=== PATIENT | female | born 1990 | race African-American/Black ===

== ENCOUNTER 2019-03-30 08:05 | Outpatient (CLI) | payer OTHER ==
--- NOTE | 2019-03-30 09:09 | ULT ---
EXAM: OB ultrasound COMPARISON: None HISTORY: female. Evaluate size, dates, and anatomy. TECHNIQUE: Multiplanar grayscale and color Doppler images were obtained in a transabdominal ult rasound. FINDINGS: There is a single live intrauterine with heart rate of 153 bpm. A survey wa s performed which is unremarkable. The head, intracranial structures, heart, stomach, kidneys, umbilical cord, umbilical cord insertion, spine, face, and extremities were evaluated and were unrema rkable. Estimated weight is 706 g. Average age of the fetus based off today's examination is 24 weeks 5 days. BPD 5.90 cm -- 24 weeks 1 day HC 23.20 cm -- 25 weeks 2 days AC 18.91 cm -- 23 weeks 5 days FL 4.66 cm -- 25 weeks 4 days The placenta is posterior/fundal in location without focal abnormality. JORGE LUIS is 13.91 cm which is norm al. There is no evidence of placenta previa. IMPRESSION: Single live intrauterine with estimated age of 24 weeks 5 days.
== END 2019-03-30 08:06 | disposition home or self-care (01) ==
LOC: BICULT 08:05
PROVIDERS: ATTEND Family Medicine
DX: Z34.92 Encounter for supervision of normal pregnancy, unspecified, second trimester (principal); Z3A.24 24 weeks gestation of pregnancy
CPT/HCPCS: 76805

== ENCOUNTER 2019-07-24 09:13 | Day surgery (SDC) | payer OTHER ==
[2019-07-24 09:39] VITALS: BMI 30.2
[2019-07-24] MEDS ORDERED: hydrALAZINE 20 MG/ML VIAL SLOW IVP PRN (09:55)
--- NOTE | 2019-07-24 21:02 | SS ---
DATE OF ADMISSION: 07/24/2019 DATE OF DISCHARGE: 07/24/2019 REGULAR PHYSICIAN: Ralph Armstrong MD. EVALUATING PHYSICIAN: Jose Bowden MD CHIEF COMPLAINT: Spotting at home. HISTORY OF PRESENT ILLNESS: Ms. Raygoza is a 28-year-old black G1, P0 with an estimated date of confinement of 07/22/2019, who presents complaining of spotting at home with irregular contractions. She denies heavy vaginal bleeding or ruptured membranes. She reports active movement. Her care has been with Dr. Ralph Armstrong. PAST MEDICAL HISTORY: None. PAST SURGICAL HISTORY: None. CURRENT MEDICATIONS: vitamins. ALLERGIES: NO KNOWN ALLERGIES. SOCIAL HISTORY: Denies tobacco, alcohol, or drug use. FAMILY HISTORY: Unremarkable. REVIEW OF SYSTEMS: Denies nausea, vomiting, fever, chills, or ruptured membranes. PHYSICAL EXAMINATION: VITAL SIGNS: In triage, her vital signs are stable and she is afebrile. GENERAL: She is pleasant and in no acute distress. ABDOMEN: Soft, nontender, and gravid. PELVIC: Exam by labor nurse, the cervix is 1 cm thick with a vertex -2. Only a small amount of bloody show was seen. heart rate tracing is reassuring over 20-30 minutes of evaluation. Irregular contractions are seen. ASSESSMENT: 1. A 40-week intrauterine . 2. Bloody show, no evidence of active labor at this time. PLAN: The patient will be dismissed to home. She was given complete labor precautions and states that she has an appointment with Dr. Ralph Armstrong on Wednesday. Job ID: [id number]
== END 2019-07-24 10:30 | disposition home or self-care (01) ==
LOC: L&D/OP 09:13
PROVIDERS: ATTEND Family Medicine
DX: O26.853 Spotting complicating pregnancy, third trimester (principal); O48.0 Post-term pregnancy; Z3A.40 40 weeks gestation of pregnancy

== ENCOUNTER 2019-07-25 22:38 | Day surgery (SDC) | payer OTHER ==
[2019-07-25 23:22] VITALS: BMI 30.2
[2019-07-25] MEDS ORDERED: hydrALAZINE 20 MG/ML VIAL SLOW IVP PRN (23:26)
--- NOTE | 2019-07-25 23:29 | PDOC.LDHP ---
Labor and Delivery H&P Chief complaint: contractions HPI: 28 y/o G1 at 39w3d, patient of Dr. Ralph Armstrong, presents with ctx since 8pm. Was seen yesterday and 1cm dilated. Denies VB, LOF, or decreased FM. ROS neg for HEENT, cv, pulm, gi, gu, neuro, psych, skin, musculoskeletal or constitutional symptoms other than mentioned above. OB History Details: First baby Current complications: none Past Medical History: None Current medications: pre-felipe vitamins Previous surgical history: none Allergies/Adverse Reactions: Allergies Allergy/AdvReac Type Severity Reaction Status Date / Time No Known Allergies Allergy Verified 07/25/19 23:18 Social history: none - Physical Exam Vital signs reviewed and normal: yes General: NAD, resting Lungs: nonlabored breathing Abdomen: gravid Extremeties: no edema FHT: category 1 (130s, mod variabiltiy, + accels, early decel) [place] contractions every: 5 mins - Vaginal Exam cm dilated: 1 (unchanged after 2 hours) Effacement: 90% Station: -2 - Assessment 28 y/o g1 at 39w3d with no e/o active labor. status reassuring with reactive NST. - Plan -: D/c home with precautions. Advised to keep all appointments.
== END 2019-07-26 02:00 | disposition home or self-care (01) ==
LOC: L&D/OP 22:38
PROVIDERS: ATTEND Family Medicine
DX: O47.1 False labor at or after 37 completed weeks of gestation (principal); Z3A.39 39 weeks gestation of pregnancy

== ENCOUNTER 2019-07-27 05:15 | Inpatient (IN) | payer OTHER, SELFPAY ==
[2019-07-27 05:48] VITALS: BMI 30.2
[2019-07-27] MEDS ORDERED: hydrALAZINE 20 MG/ML VIAL SLOW IVP PRN ×3 (06:38→23:58)
[2019-07-27] MEDS ORDERED: Promethazine HCl 25 MG/ML VIAL IM SCH (06:45)
[2019-07-27] MEDS ORDERED: Lactated Ringer's 1,000 ML IV SCH (06:45)
[2019-07-27] MEDS ORDERED: Butorphanol Tartrate 1 MG/ML VIAL SLOW IVP SCH (06:45)
[2019-07-27] MEDS ORDERED: Diphenoxylate HCl/Atropine Tablet PO PRN ×2 (08:26)
[2019-07-27] MEDS ORDERED: Ibuprofen 800 MG TAB PO PRN (08:26)
[2019-07-27] MEDS ORDERED: Carboprost 250 MCG/ML AMP IM PRN (08:26)
[2019-07-27] MEDS ORDERED: Misoprostol 200 MCG TAB PR PRN (08:26)
[2019-07-27] MEDS ORDERED: NS / Oxytocin 40 units/1000ml 1,000 ML IV PRN (08:26)
[2019-07-27] MEDS ORDERED: Acetaminophen 500 MG TAB PO PRN (08:26)
[2019-07-27] MEDS ORDERED: Methylergonovine 0.2 MG/ML VIAL IM PRN (08:26)
[2019-07-27] MEDS ORDERED: Ondansetron PF 4 MG/2 ML Vial IVP PRN ×3 (08:26→23:58)
[2019-07-27] MEDS ORDERED: HYDROcodone/Acetaminophen 5/325 mg Tablet PO PRN ×3 (08:26→23:58)
[2019-07-27] MEDS ORDERED: Promethazine HCl 25 MG/ML VIAL IM PRN ×2 (08:26→14:18)
[2019-07-27] MEDS ORDERED: Lidocaine 1% (PF) 30 ML VIAL SC PRN (08:26)
[2019-07-27] MEDS ORDERED: Penicillin G Potassium 5 MILL.UNITS in Sodium Chloride 0.9% 100 ML IVPB SCH (08:30)
[2019-07-27] MEDS ORDERED: NS w/ Oxytocin 10 units 500 ML IV SCH (08:30)
[2019-07-27] MEDS: Lactated Ringer's 1,000 ML IV SCH ×2 (09:44→22:22)
[2019-07-27 10:03] LABS: Hemoglobin 12.4 g/dL (12.0-16.0); Mean Corpuscular HGB CONC 33.5 g/dL (32.0-36.0); Mean Corpuscular Hemoglobin 29.8 pg (27.0-31.0); Mean Corpuscular Volume 89.1 fL (78.0-98.0); Mean Platelet Volume 8.1 fL (7.4-10.4); Platelet Count 201 thou/uL (130-400); RBC Distribution Width 13.5 % (11.5-14.5); Red Blood Cell (RBC) Count 4.16 mill/uL (4.20-5.40); White Blood Cell (WBC) Count 9.4 thou/uL (4.8-10.8)
[2019-07-27 10:41] LABS: HBSAg Index 0.21 S/CO (0-0.99); Hep B Surf Ag Non-Reactive S/CO (NonReactive); Syphilis Antibody Nonreactive (Nonreactive); Syphilis Antibody Index 0.04 S/CO (<1.00 Non-Reactive)
--- NOTE | 2019-07-27 11:17 | PDOC.LDPN ---
Labor & Delivery Progress Note - Subjective Subjective: painful contractions - Objective Vital signs reviewed and normal: yes General: NAD, resting Uterine fundus: palpable contractions Dilation: 3.5 Effacement: 90% Station: -2 FHT: category 1 [place] contractions every: 2-3 AROM: meconium stained fluid - Assessment (1) Active labor at term Code(s): [id number] - Current Visit: Yes Status: Acute Plan: continue plan of care
[2019-07-27] MEDS ORDERED: Butorphanol Tartrate 1 MG/ML VIAL SLOW IVP PRN (11:27)
[2019-07-27] MEDS ORDERED: Butorphanol Tartrate 1 MG/ML VIAL ONE (11:28)
[2019-07-27] MEDS: Penicillin G 2.5 MILL.units 2.5 MILL.UNITS in Premix Bag 1 BAG IVPB SCH ×3 (13:23→22:23)
[2019-07-27] MEDS ORDERED: Fentanyl 4 mcg/Bup 0.1% Cadd 100 ML ONE (13:27)
[2019-07-27] MEDS ORDERED: Naloxone HCl 0.4 mg/ml Vial IVP PRN ×2 (14:18)
[2019-07-27] MEDS ORDERED: Acetaminophen 325 MG TAB PO PRN (14:18)
[2019-07-27] MEDS ORDERED: Lactated Ringer's 500 ML IV PRN (14:18)
[2019-07-27] MEDS ORDERED: diphenhydrAMINE 50 MG/ML VIAL IVP PRN (14:18)
[2019-07-27] MEDS ORDERED: ePHEDrine/0.9% NaCl/PF SYRINGE 50 mg/10 ml SLOW IVP PRN (14:18)
[2019-07-27] MEDS ORDERED: Communication Order-Pharmacy FS SCH (14:30)
[2019-07-27] MEDS ORDERED: Fentanyl 4 mcg/Bupivacaine 0.1% Cassette 100 ML EPIDURAL SCH (14:30)
[2019-07-27] MEDS ORDERED: Misoprostol 200 MCG TAB ONE (21:01)
[2019-07-27] MEDS ORDERED: Acetaminophen/Codeine 30-300mg Tablet PO PRN (23:58)
[2019-07-27] MEDS ORDERED: Lanolin Ointment 7 GM TUBE TOP PRN (23:58)
[2019-07-27] MEDS ORDERED: Milk Of Magnesia 30 ML UDCUP PO PRN (23:58)
[2019-07-27] MEDS ORDERED: diphenhydrAMINE 25 MG CAP PO PRN (23:58)
[2019-07-27] MEDS ORDERED: Bisacodyl 10 MG SUPP PR PRN (23:58)
[2019-07-27] MEDS ORDERED: traMADol HCl 50 MG TAB PO PRN (23:58)
[2019-07-27] MEDS ORDERED: NS / Oxytocin 40 units/1000ml 1,000 ML IV SCH (23:58)
[2019-07-27] MEDS ORDERED: Benzocaine-Menthol 82.5 ML CAN TOP PRN (23:58)
[2019-07-27] MEDS ORDERED: Preparation H Ointment 28 GM TUBE PR PRN (23:58)
[2019-07-28] MEDS: Lactated Ringer's 1,000 ML IV SCH ×2 (00:01→00:51)
[2019-07-28] MEDS ORDERED: Ibuprofen 800 MG TAB PO SCH (00:30)
--- NOTE | 2019-07-28 02:50 | OP ---
DATE OF PROCEDURE: 07/27/2019 DELIVERING PHYSICIAN: Dr. Cherelle Meneses. ATTENDING PHYSICIAN: Dr. [place] Armstrong PROCEDURE PERFORMED: Spontaneous vaginal delivery. ANESTHESIA: Epidural. ESTIMATED BLOOD LOSS: 350 mL. PREOPERATIVE DIAGNOSES: 1. Term intrauterine . 2. Onset of labor POSTOPERATIVE DIAGNOSES: 1. Term intrauterine , delivered. INDICATIONS: This is a 28-year-old, G1, P0, who presented for induction of labor. DELIVERY NOTE: This is a 28-year-old, G1, P0, at 40 weeks, who delivered a term average for gestational age viable female at 2054 hours on 07/27/2019 via spontaneous vaginal delivery by Dr. Cherelle Meneses with Dr. [place] Armstrong as attending. Following uneventful antepartum course, a vigorous female was delivered over an intact perineum in occipitoanterior position. Anterior shoulder and the remainder of body delivered. No nuchal cord. Head was held down. Mouth and nares were bulb suctioned. Cord was clamped and cut after delayed cord clamping. Cord blood was collected. Placenta was delivered intact with a 3-vessel cord noted. Fundal massage was performed and the fundus was initially noted to be boggy. The patient was given a 1000 mcg of Cytotec and the bleeding resolved. Cervix and vagina were inspected and a second-degree perineal laceration was noted and repaired in the usual sterile fashion using 3-[address] The infant went to nursery in good condition for routine care. Apgars were 7 and 8 at 1 and 5 minutes respectively. The patient tolerated delivery well, went to after routine recovery/ care. Job ID: [id number] [facility]
[2019-07-28] MEDS ORDERED: Lactated Ringer's 500 ML IV SCH (03:45)
[2019-07-28] MEDS: Ibuprofen 800 MG TAB PO SCH ×3 (05:33→21:22)
[2019-07-28 05:56] LABS: Hemoglobin 11.5 g/dL (12.0-16.0); Mean Corpuscular HGB CONC 34.1 g/dL (32.0-36.0); Mean Corpuscular Hemoglobin 30.6 pg (27.0-31.0); Mean Corpuscular Volume 89.8 fL (78.0-98.0); Mean Platelet Volume 7.6 fL (7.4-10.4); Platelet Count 250 thou/uL (130-400); RBC Distribution Width 13.5 % (11.5-14.5); Red Blood Cell (RBC) Count 3.75 mill/uL (4.20-5.40); White Blood Cell (WBC) Count 16.1 thou/uL (4.8-10.8)
[2019-07-28] MEDS: Ferrous Sulfate 325 MG TAB PO SCH (07:35)
[2019-07-28] MEDS: Prenatal Vitamin 1 TAB PO SCH (08:27)
[2019-07-28] MEDS: Docusate Calcium (SURFAK) 240 MG CAP PO SCH ×2 (08:27→21:22)
--- NOTE | 2019-07-28 08:54 | HP ---
HISTORY OF PRESENT ILLNESS: This is a 28-year-old black female, G1, P0, at 40 weeks gestation with EDC of 07/27/2019, who presents with regular contractions. The patient's course is uncomplicated. She is positive. She has presented to Labor and Delivery approximately 4 times, now with contractions. Her cervix is 1 cm, 90%. heart tracing has been normal. At this point, the patient is being admitted for Pitocin augmentation. PAST MEDICAL HISTORY: Headaches and history of gastritis. ALLERGIES: NONE. PAST SURGICAL HISTORY: None. FAMILY HISTORY: Unremarkable. No history of diabetes or cancers. SOCIAL HISTORY: She is . Lives with her spouse. She attends [employer] and her attends [employer]. She is from [facility], [place]. She speaks Greek, Macedonian, and [place]. She does not smoke and does not drink. REVIEW OF SYSTEMS: As above. PHYSICAL EXAMINATION: VITAL SIGNS: Stable. Afebrile. HEART: Regular rate and rhythm. LUNGS: Clear. ABDOMEN: Soft. Gravid. Irregular contraction. heart tracing, category I. Cervix 1 cm, 90% -1. LABORATORY DATA: GBS positive. HIV negative. 1-hour GCT 86. Hepatitis B negative. HIV negative. Rubella immune, Chlamydia negative. Urine culture negative. O positive blood type. TSH normal. RPR nonreactive. ASSESSMENT: 1. 40-week intrauterine . 2. Early labor. PLAN: 1. Admit. 2. Pitocin augmentation. 3. Routine L and D orders. 4. evaluation for epidural. Job ID: [id number]
[2019-07-29] MEDS: Ibuprofen 800 MG TAB PO SCH ×2 (05:35→13:52)
[2019-07-29] MEDS: Prenatal Vitamin 1 TAB PO SCH (08:55)
[2019-07-29] MEDS: Docusate Calcium (SURFAK) 240 MG CAP PO SCH (08:55)
[2019-07-29] MEDS ORDERED: Adacel (T-DAP) 0.5 ML SYRINGE IM ONE (09:00)
[2019-07-29] MEDS: Ferrous Sulfate 325 MG TAB PO SCH (10:03)
[2019-07-29 12:48] VITALS: BP 114/71; TEMP 98.4
== END 2019-07-29 15:02 | disposition home or self-care (01) | DRG 807 ==
LOC: L&D/OP 05:15 → L&D 09:44 → 3SE 07-28 00:46
PROVIDERS: ADMIT Family Medicine; ATTEND Family Medicine
PROC: 10E0XZZ Delivery of Products of Conception, External Approach (ICD-10-PCS; principal; 2019-07-27)
PROC: 0KQM0ZZ Repair Perineum Muscle, Open Approach (ICD-10-PCS; 2019-07-27)
PROC: 10907ZC Drainage of Amniotic Fluid, Therapeutic from Products of Conception, Via Natural or Artificial Opening (ICD-10-PCS; 2019-07-27)
DX: O99.824 Streptococcus B carrier state complicating childbirth (principal); Z37.0 Single live birth; Z3A.40 40 weeks gestation of pregnancy; O77.0 Labor and delivery complicated by meconium in amniotic fluid; O70.1 Second degree perineal laceration during delivery; O62.2 Other uterine inertia
CPT/HCPCS: 36415; 85027; 86780; 86850; 86900; 86901; 87340; 90715; J0595; J2540; J2550; J2590; J3490